=== PATIENT | female | born 1955 | race Caucasian/White ===

== ENCOUNTER 2019-06-03 06:51 | Day surgery (SDC) | payer BC ==
[~2019-06-03 06:51] MED LIST: Lactated Ringers 1,000 ML IV SCH; Lidocaine 1%/Sod Bicarbonate in NS 8.4% 1 ML Syringe IDERM PRN; Sodium Chloride 0.9% 10 ML Syringe FLUSH PRN
[2019-06-03] MEDS ORDERED: EPINEPHrine 1 MG/ML 30 ML MDV ONE (07:00)
[2019-06-03] MEDS ORDERED: Bupivacaine 0.25% 10 ML SDV ONE (07:12)
[2019-06-03] MEDS ORDERED: Ondansetron 4 MG/2 ML SDV ONE (07:25)
[2019-06-03] MEDS ORDERED: Lactated Ringers 1,000 ML ONE (07:25)
[2019-06-03] MEDS ORDERED: Dexamethasone 4 MG/ML 5 ML MDV ONE (07:25)
[2019-06-03] MEDS ORDERED: fentaNYL 250 MCG/5 ML SDV ONE (07:25)
[2019-06-03] MEDS ORDERED: Midazolam 1 MG/ML 2 ML SDV ONE (07:25)
[2019-06-03] MEDS ORDERED: Lidocaine 1% 4 ML ONE (07:25)
[2019-06-03] MEDS ORDERED: Propofol 200 MG/20 ML SDV ONE (07:25)
[2019-06-03] MEDS ORDERED: ceFAZolin 1 GM Vial ONE (07:25)
[2019-06-03] MEDS ORDERED: Ketorolac 30 MG/ML SDV ONE (07:26)
[2019-06-03] MEDS ORDERED: EPINEPHrine 1 MG/1 ML Amp ONE (07:32)
[2019-06-03] MEDS ORDERED: Ropivacaine 0.5% 5 MG/ML 30 ML SDV ONE (07:33)
[2019-06-03] MEDS ORDERED: ePHEDrine/Normal Saline 25 MG/5 ML Syringe ONE (07:58)
[2019-06-03] MEDS ORDERED: Ondansetron 4 MG/2 ML SDV IVPUSH PRN (08:13)
--- NOTE | 2019-06-03 08:13 | PCM.PREANE ---
Preanesthetic Assessment - Anesthesia/Transfusion/Family Hx Anesthesia History: Prior Anesthesia Without Reaction Family History of Anesthesia Reaction: No - Review of Systems General: No Symptoms Pulmonary: No Symptoms Cardiovascular: No Symptoms Gastrointestinal: No Symptoms Neurological: Headache Other: Reports: None - Physical Assessment NPO Status Date: 06/02/19 NPO Status Time: 23:00 Vital Signs: Last Vital Signs Temp 36.4 C 06/03/19 07:00 Pulse 74 06/03/19 07:00 Resp 16 06/03/19 07:00 BP 122/69 06/03/19 07:00 Pulse Ox 95 06/03/19 07:00 Height: 1.55 m Weight: 71.214 kg ASA Class: 2 Mental Status: Alert & Oriented x3 Airway Class: Mallampati = 2 Dentition: Reports: Normal Dentition Thyro-Mental Finger Breadths: 3 Mouth Opening Finger Breadths: 3 ROM/Head Extension: Full Lungs: Clear to Auscultation, Normal Respiratory Effort Cardiovascular: Regular Rate, Regular Rhythm - Lab Values: Laboratory Last Values MRSA (PCR) Negative 06/02/19 09:56 - Allergies Allergies/Adverse Reactions: Allergies Allergy/AdvReac Type Severity Reaction Status Date / Time prochlorperazine AdvReac Other Verified 06/03/19 07:17 - Anesthesia Plan Pre-Op Medication Ordered: Anxiolytic - Acknowledgements Anesthesia Type Planned: General Anesthesia Pt an Appropriate Candidate for the Planned Anesthesia: Yes Alternatives and Risks of Anesthesia Discussed w Pt/Guardian: Yes Pt/Guardian Understands and Agrees with Anesthesia Plan: Yes PreAnesthesia Questionnaire HEENT History: Reports: None Cardiovascular History: Reports: None Respiratory History: Reports: None Gastrointestinal History: Reports: None Genitourinary History: Reports: None [employer] History: Reports: Other (See Below) Other OB/BYN History: atrophic vaginitis, vaginal odor Musculoskeletal History: Reports: Osteoporosis, Other (See Below) Other Musculoskeletal History: right great trochanteric bursitis, right knee pain, right hip pain Neurological History: Reports: Migraines, Other (See Below) Other Neuro History: lumbago Psychiatric History: Reports: Anxiety, Depression, Other (See Below) Other Psychiatric History: fatigue, insomnia Endocrine/Metabolic History: Reports: None Hematologic History: Reports: None Immunologic History: Reports: None Oncologic (Cancer) History: Reports: None Dermatologic History: Reports: Other (See Below) Other Dermatologic History: perianal dermatitis - Past Surgical History Head Surgeries/Procedures: Reports: None HEENT Surgical History: Reports: None Cardiovascular Surgical History: Reports: None Respiratory Surgical History: Reports: None GI Surgical History: Reports: None Female Surgical History: Reports: None Male Surgical History: Reports: None Endocrine Surgical History: Reports: None Neurological Surgical History: Reports: None Musculoskeletal Surgical History: Reports: None Oncologic Surgical History: Reports: None Dermatological Surgical History: Reports: None - SUBSTANCE USE Smoking Status *Q: Never Smoker - HOME MEDS Home Medications: Home Meds Venlafaxine [Effexor] 75 mg PO DAILY 06/02/19 [History] Zolpidem [Ambien] 10 mg PO BEDTIME PRN 06/02/19 [History] Aspirin 325 mg PO BID #84 tab 06/03/19 [Rx] SUMAtriptan Succinate [Imitrex] 100 mg PO ASDIRECTED PRN 06/03/19 [History] traMADol [Ultram] 50 - 100 mg PO Q6H PRN #20 tab 06/03/19 [Rx] - CURRENT (IN HOUSE) MEDS Current Meds: Current Medications Lactated Ringer's (Ringers, Lactated) 1,000 mls @ 125 mls/hr IV ASDIRECTED HOSSEIN Stop: 06/03/19 23:00 Last Admin: 06/03/19 07:10 Dose: 125 mls/hr Lidocaine/Sodium Bicarbonate (Buffered Lidocaine 1% In Ns 8.4%) 0.25 ml IDERM ONETIME PRN PRN Reason: Prior to IV Start Stop: 06/03/19 18:00 Last Admin: 06/03/19 07:10 Dose: 0.25 ml Sodium Chloride (Saline Flush) 10 ml FLUSH ASDIRECTED PRN PRN Reason: Keep Vein Open Stop: 06/03/19 18:00 Discontinued Medications Bupivacaine HCl (Sensorcaine-Mpf 0.25%) Confirm Administered Dose 10 ml .ROUTE .STK-MED ONE Stop: 06/03/19 07:13 Cefazolin Sodium (Ancef) Confirm Administered Dose 2 gm .ROUTE .STK-MED ONE Stop: 06/03/19 07:26 Dexamethasone (Dexamethasone) Confirm Administered Dose 20 mg .ROUTE .STK-MED ONE Stop: 06/03/19 07:26 Ephedrine Sulfate (Ephedrine In Ns) Confirm Administered Dose 25 mg .ROUTE .STK- MED ONE Stop: 06/03/19 07:59 Epinephrine HCl (Adrenalin) 3 mg .XX ONETIME ONE Stop: 06/03/19 07:01 Epinephrine HCl (Adrenalin) Confirm Administered Dose 1 mg .ROUTE .STK-MED ONE Stop: 06/03/19 07:33 Fentanyl (Sublimaze) Confirm Administered Dose 250 mcg .ROUTE .STK-MED ONE Stop: 06/03/19 07:26 Lidocaine HCl (Xylocaine-Mpf 1%) Confirm Administered Dose 4 mls @ as directed .ROUTE .STK-MED ONE Stop: 06/03/19 07:26 Lactated Ringer's (Ringers, Lactated) Confirm Administered Dose 1,000 mls @ as directed .ROUTE .STK-MED ONE Stop: 06/03/19 07:26 Ketorolac Tromethamine (Toradol) Confirm Administered Dose 30 mg .ROUTE .STK- MED ONE Stop: 06/03/19 07:27 Midazolam HCl (Versed 1 Mg/Ml) Confirm Administered Dose 2 mg .ROUTE .STK-MED ONE Stop: 06/03/19 07:26 Ondansetron HCl (Zofran) Confirm Administered Dose 4 mg .ROUTE .STK-MED ONE Stop: 06/03/19 07:26 Propofol (Diprivan 20 Ml) Confirm Administered Dose 400 mg .ROUTE .STK-MED ONE Stop: 06/03/19 07:26 Ropivacaine (Naropin 0.5%) Confirm Administered Dose 30 ml .ROUTE .STK-MED ONE Stop: 06/03/19 07:34
--- NOTE | 2019-06-03 08:40 | PCM.POSTAN ---
POST ANESTHESIA ASSESSMENT - MENTAL STATUS Mental Status: Alert, Oriented - VITAL SIGNS Vital Signs: Last Vital Signs Temp 36.4 C 06/03/19 07:00 Pulse 74 06/03/19 07:00 Resp 16 06/03/19 07:00 BP 122/69 06/03/19 07:00 Pulse Ox 95 06/03/19 07:00 - RESPIRATORY Respiratory Status: Respiratory Rate WNL, Airway Patent, O2 Saturation Stable, Supplemental Oxygen - CARDIOVASCULAR CV Status: Pulse Rate WNL, Blood Pressure Stable - GASTROINTESTINAL GI Status: No Symptoms - PAIN Pain Score: 0 - POST OP HYDRATION Hydration Status: Adequate & Stable
[2019-06-03] MEDS: fentaNYL 100 MCG/2 ML SDV IVPUSH PRN ×3 (08:52→09:15)
[2019-06-03] MEDS ORDERED: traMADol 50 MG Tab PO SCH (09:00)
--- NOTE | 2019-06-03 14:35 | PCM48HPAN ---
Post Anesthesia Note - EVALUATION WITHIN 48HRS OF ANESTHETIC Vital Signs in Normal Range: Yes Patient Participated in Evaluation: Yes Respiratory Function Stable: Yes Airway Patent: Yes Cardiovascular Function Stable: Yes Hydration Status Stable: Yes Pain Control Satisfactory: Yes Nausea and Vomiting Control Satisfactory: Yes Mental Status Recovered: Yes Vital Signs: Last Vital Signs Temp 36.3 C 06/03/19 11:12 Pulse 81 06/03/19 11:12 Resp 17 06/03/19 11:12 BP 120/77 06/03/19 11:12 Pulse Ox 100 06/03/19 11:12
--- NOTE | 2019-06-07 09:58 | PCM.OPNOTE ---
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
--- NOTE | 2019-06-07 10:31 | OR ---
DATE OF OPERATION: 06/03/2019 SURGEON: Niko Sahni MD OPERATION PERFORMED: Right knee video arthroscopy with partial medial meniscectomy and chondroplasty of medial femoral condyle. PREOPERATIVE DIAGNOSIS: Right knee meniscus tear with osteoarthrosis. POSTOPERATIVE DIAGNOSIS: Right knee meniscus tear with osteoarthrosis. ANESTHESIA: General LMA with local. ANESTHESIA PROVIDER: Dayan Gutierrez. SPUD SORTER: Nae Sinclair PA-C. ESTIMATED BLOOD LOSS: Less than 5 mL. COMPLICATIONS: None. CONDITION: Stable. DESCRIPTION OF PROCEDURE: The patient was identified in the preoperative holding area. Proper site was marked and identified by the surgeon. The patient was taken back to the operating theater where after adequate anesthesia, the patient's left lower extremity was placed in a well leg curran. Right lower extremity had a nonsterile tourniquet applied and it was then placed in a C-clamp curran. Foot of bed was then lowered. The right lower extremity was sterilely prepped and draped in the usual sterile fashion. OR time-out was performed. The patient received 2 g IV Ancef. Right lower extremity was then exsanguinated. Tourniquet was insufflated to 250 mmHg. Standard anterior lateral portal incision was made. Scope trocar was introduced. 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 Attention was turned to the medial compartment. With the use of spinal needle, anterior medial portal was created. The patient was noted to have a tear of the posterior horn of the medial meniscus near the posterior third. This had partial medial meniscectomy then performed roughly 20% of the meniscus back to a stable rim. The root was intact still. The patient was noted to have grade 2/3 chondromalacia of the medial femoral condyle and chondroplasty of any loose fragments was done at this time. ACL was intact and the notch. Lateral compartment showed no signs of changes. Excess saline was drained from the knee. A 3-0 nylon suture was used for closure of the skin. The patient tolerated the procedure well, had sterile soft dressing applied and sent to PACU in stable condition. MMODAL /[id number]
== END 2019-06-03 11:38 | disposition home or self-care (01) ==
LOC: JD.SDS 06:51
PROVIDERS: ATTEND Orthopaedic Surgery
DX: S83.241A Other tear of medial meniscus, current injury, right knee, initial encounter (principal); M17.11 Unilateral primary osteoarthritis, right knee; M22.41 Chondromalacia patellae, right knee; F41.9 Anxiety disorder, unspecified; F33.0 Major depressive disorder, recurrent, mild; G43.909 Migraine, unspecified, not intractable, without status migrainosus; G47.00 Insomnia, unspecified; X58.XXXA Exposure to other specified factors, initial encounter; Z88.8 Allergy status to other drugs, medicaments and biological substances; Z79.82 Long term (current) use of aspirin; Z79.899 Other long term (current) drug therapy
CPT/HCPCS: 29881; 87641; 93005; A9270; J0171; J0690; J1100; J1885; J2001; J2250; J2405; J2704; J2795; J3010; J3490; J7050; J7120; 01400

== ENCOUNTER 2024-11-09 07:17 | Day surgery (SDC) | payer MEDICARE ==
[~2024-11-09 07:17] MED LIST changes: -Lactated Ringers 1,000 ML IV SCH; -Lidocaine 1%/Sod Bicarbonate in NS 8.4% 1 ML Syringe IDERM PRN; +Sodium Chloride 0.9% 10 ML Syringe FLUSH SCH
[2024-11-09] MEDS: Lactated Ringers 1,000 ML IV SCH (07:30)
[2024-11-09] MEDS ORDERED: Propofol 200 MG/20 ML SDV ONE ×3 (08:07→08:24)
[2024-11-09] MEDS ORDERED: ePHEDrine 50 MG/ML SDV ONE (08:26)
== END 2024-11-09 09:36 | disposition home or self-care (01) ==
LOC: JD.SDS 07:17
PROVIDERS: ATTEND Surgery
DX: K29.50 Unspecified chronic gastritis without bleeding (principal); B96.81 Helicobacter pylori [H. pylori] as the cause of diseases classified elsewhere; K44.9 Diaphragmatic hernia without obstruction or gangrene; K57.32 Diverticulitis of large intestine without perforation or abscess without bleeding; K57.30 Diverticulosis of large intestine without perforation or abscess without bleeding; F33.0 Major depressive disorder, recurrent, mild; Z79.899 Other long term (current) drug therapy; Z91.011 Allergy to milk products; Z91.018 Allergy to other foods
CPT/HCPCS: 43239; 45378; C9777; J2704; J7120; 00813; J3490